=== PATIENT | male | born 2000 | race Caucasian/White ===

== ENCOUNTER 2024-11-18 10:42 | Emergency (ER) | payer OTHER ==
[~2024-11-18] VITALS: Ht 180.3 cm; Wt 86.8 kg
[2024-11-18 14:52] VITALS: BP 117/50
== END 2024-11-18 14:52 | disposition home or self-care (01) ==
LOC: ED 10:42
DX: S90.31XA Contusion of right foot, initial encounter (principal); X58.XXXA Exposure to other specified factors, initial encounter
CPT/HCPCS: 73630; 73700; 99284-25